=== PATIENT | female | born 2000 | race Caucasian/White ===

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

== ENCOUNTER → 2022-01-30 | Outpatient (CLI) | payer OTHER ==
[2022-02-01 08:11] LABS: CHLAMYDIA TRACHOMATIS, NAA Positive (Negative)
== END | disposition home or self-care (01) ==
LOC: LAB 15:39 → LAB SHORT 15:39
PROVIDERS: Family Medicine
DX: Z20.9 Contact with and (suspected) exposure to unspecified communicable disease (principal)
CPT/HCPCS: 87491; 87591

== ENCOUNTER 2022-11-14 16:43 | Emergency (ER) | payer OTHER ==
[~2022-11-14] VITALS: Ht 157.5 cm; Wt 56.7 kg
[2022-11-14 19:42] VITALS: BP 98/67
== END 2022-11-14 21:00 | disposition home or self-care (01) ==
LOC: ER 16:43
DX: O9A.212 Injury, poisoning and certain other consequences of external causes complicating pregnancy, second trimester (principal); S39.91XA Unspecified injury of abdomen, initial encounter; Z88.8 Allergy status to other drugs, medicaments and biological substances; Z3A.16 16 weeks gestation of pregnancy; Y04.2XXA Assault by strike against or bumped into by another person, initial encounter
CPT/HCPCS: 76815; 99284-25

== ENCOUNTER 2023-04-22 19:23 | Inpatient (IN) | payer OTHER ==
[~2023-04-22] VITALS: Ht 162.6 cm; Wt 72.7 kg
[2023-04-22] VITALS (10 sets, daily range): BP systolic 98–118; BP diastolic 55–71
[2023-04-22 19:58] LABS: BASOPHILS ABSOLUTE AUTO 0.01 K/mm3 (0.00-0.23); BASOPHILS PERCENT AUTO 0 % (0-2); EOSINOPHILS ABSOLUTE AUTO 0.07 K/mm3 (0.00-0.68); EOSINOPHILS PERCENT AUTO 1 % (0-6); Hematocrit 36.6 % (33.0-51.0); Hemoglobin 11.3 g/dL (11.5-16.0); IMMATURE GRAN ABSOLUTE AUTO 0.05 K/mm3 (0.00-0.10); IMMATURE GRAN PERCENT AUTO 0 % (0-1); LYMPHOCYTES ABSOLUTE AUTO 2.24 K/mm3 (0.84-5.20); LYMPHOCYTES PERCENT AUTO 20 % (21-46); MONOCYTES ABSOLUTE AUTO 0.85 K/mm3 (0.16-1.47); MONOCYTES PERCENT AUTO 8 % (4-13); Mean Corpuscular HGB 24.7 pg (26.0-34.0); Mean Corpuscular HGB Conc 30.9 g/dL (31.5-36.5); Mean Corpuscular Volume 80 fL (80-100); Mean Platelet Volume 10.1 fL (9.1-12.4); NEUTROPHILS ABSOLUTE AUTO 8.09 K/mm3 (1.96-9.15); NEUTROPHILS PERCENT AUTO 72 % (41-73); Platelet Count 340 K/mm3 (150-400); RDW Coefficient Variation 26.3 % (11.7-14.2); RDW Standard Deviation 71.8 fL (35.1-46.3); Red Blood Cell Count 4.57 M/mm3 (3.80-5.20); White Blood Cell Count 11.31 K/mm3 (4.00-11.30)
[2023-04-22] MEDS ORDERED: IRON18 MG PO (20:00)
[2023-04-22] MEDS ORDERED: PRENATAL TABLE1 EAC2 PO (20:00)
[2023-04-22] MEDS ORDERED: OMEP20ER (20:01)
[2023-04-23] VITALS (22 sets, daily range): BP systolic 85–105; BP diastolic 52–64
--- NOTE | 2023-04-23 23:51 | NUR ---
PT REPORTS HAVING SEVERE PAIN IN HER BACK WHERE THE EPIDURAL WAS DONE. SHE SAID SHE HAS A HARD TIME GETTING UP BECAUSE OF IT AND IT HURTS TO MOVE. SHE ALSO REPORTS THAT SHE HAS SHOOTING PAIN FROM THE SITE OF THE EPIDURAL TO THE BASE OF HER NECK WHEN SHE MOVES AROUND IN BED. SHE WAS GIVEN PAIN MEDICATION AND A HEATING PAD. IT WAS RECOMMENDED THAT SHE GET UP AND MOVE AROUND MORE. LOOKED AT HER BACK AND THERE IS NO BRUISING OR LUMPS IN HER BACK. SPOKE WITH DR. OLIVER (ANESTHESIA), WHO ALSO RECOMMENDED HEAT AND MOVING MORE. HE SAID IT COULD BE THAT THE NEEDLE FROM THE EPIDURAL TOUCHED A BONE AND THAT IS CAUSING THE PAIN. PT WAS NOTIFIED.
[2023-04-24 07:57] VITALS: BP 96/52
[2023-04-24 09:59] LABS: Mean Corpuscular HGB 24.8 pg (26.0-34.0); Mean Corpuscular Volume 83 fL (80-100); Mean Platelet Volume 10.2 fL (9.1-12.4); Platelet Count 198 K/mm3 (150-400); RDW Coefficient Variation 26.3 % (11.7-14.2); RDW Standard Deviation 73.8 fL (35.1-46.3); Red Blood Cell Count 3.63 M/mm3 (3.80-5.20); White Blood Cell Count 6.64 K/mm3 (4.00-11.30)
--- NOTE | 2023-04-24 10:22 | NUR ---
pt read her and babys dc instruction she reported, didnt want alot of dc instructions, rn able to go over a few things, pt is tearful for going home with out corner bead operator. pt is doing baby care well and independently, SO at bedside, pt to call rn when ready to match bands for going home
[2023-04-24 11:31] VITALS: BP 107/52
--- NOTE | 2023-04-24 15:46 | NUR ---
UPDATED PER EMR - GE
== END 2023-04-24 11:40 | disposition home or self-care (01) | DRG 807 ==
LOC: OBS 19:23 → BC 19:24 → OBS 19:30 → BC 19:31
PROVIDERS: ADMIT Advanced Practice Midwife
PROC: 10E0XZZ Delivery of Products of Conception, External Approach (ICD-10-PCS; principal; 2023-04-23)
PROC: 0HQ9XZZ Repair Perineum Skin, External Approach (ICD-10-PCS; 2023-04-23)
PROC: 3E033VJ Introduction of Other Hormone into Peripheral Vein, Percutaneous Approach (ICD-10-PCS; 2023-04-23)
DX: O99.02 Anemia complicating childbirth (principal); Z37.0 Single live birth; D50.9 Iron deficiency anemia, unspecified; Z3A.39 39 weeks gestation of pregnancy; Z88.8 Allergy status to other drugs, medicaments and biological substances; Z67.40 Type O blood, Rh positive; O70.0 First degree perineal laceration during delivery
CPT/HCPCS: 36415; 51702; 85025; 85027; 86850; 86900; 86901; A9270; J1885; J2590; J3010; J7120

== ENCOUNTER 2023-05-23 02:28 | Emergency (ER) | payer OTHER ==
[~2023-05-23] VITALS: Ht 162.6 cm; Wt 59.0 kg
[~2023-05-23 02:28] MED LIST changes: +IRON18 MG PO; +OMEP20ER; +PRENATAL TABLE1 EAC2 PO
[2023-05-23 03:02] VITALS: BP 98/62
[2023-05-23 04:00] LABS: BASOPHILS ABSOLUTE AUTO 0.03 K/mm3 (0.00-0.23); BASOPHILS PERCENT AUTO 0 % (0-2); EOSINOPHILS ABSOLUTE AUTO 0.41 K/mm3 (0.00-0.68); EOSINOPHILS PERCENT AUTO 5 % (0-6); Hematocrit 36.6 % (33.0-51.0); Hemoglobin 11.1 g/dL (11.5-16.0); IMMATURE GRAN ABSOLUTE AUTO 0.02 K/mm3 (0.00-0.10); IMMATURE GRAN PERCENT AUTO 0 % (0-1); LYMPHOCYTES PERCENT AUTO 32 % (21-46); MONOCYTES ABSOLUTE AUTO 0.79 K/mm3 (0.16-1.47); MONOCYTES PERCENT AUTO 10 % (4-13); Mean Corpuscular HGB 25.2 pg (26.0-34.0); Mean Corpuscular HGB Conc 30.3 g/dL (31.5-36.5); Mean Corpuscular Volume 83 fL (80-100); Mean Platelet Volume 9.5 fL (9.1-12.4); NEUTROPHILS ABSOLUTE AUTO 3.98 K/mm3 (1.96-9.15); NEUTROPHILS PERCENT AUTO 52 % (41-73); Platelet Count 379 K/mm3 (150-400); RDW Coefficient Variation 21.2 % (11.7-14.2); RDW Standard Deviation 63.7 fL (35.1-46.3); White Blood Cell Count 7.63 K/mm3 (4.00-11.30)
[2023-05-23 04:27] LABS: Albumin/Globulin Ratio 0.7 (0.8-1.8); Bilirubin, Total 0.1 mg/dL (0.1-1.0); Bun/Creatinine Ratio 15.9 (12.0-20.0); Calcium, Blood 8.3 mg/dL (8.5-10.1); Creatinine, Blood 0.76 mg/dL (0.40-1.00); Globulin, Blood 4.3 g/dL (2.2-4.0); Magnesium, Blood 2.1 mg/dL (1.6-2.4); Phosphorus, Blood 3.5 mg/dL (2.5-4.9); Potassium, Blood 3.7 mmol/L (3.5-5.5); Total Protein, Blood 7.3 g/dL (6.4-8.2)
[2023-05-23] MEDS ORDERED: HYDCOR2.5C PR (04:58)
[2023-05-23] MEDS ORDERED: DOCU100 PO (04:58)
[2023-05-23] MEDS ORDERED: ACET500 PO (04:58)
[2023-05-23 05:19] LABS: Source, Urine Clean Catch
[2023-05-23 05:27] LABS: Bilirubin, Urine Neg (Neg); Blood, Urine Neg (Neg); Color, Urine Yellow (P-Yellow); Glucose Qualitative, Urine 1+ (Neg); Ketones, Urine 1+ (Neg); Leukocyte Esterase, Urine 2+ (Neg); Nitrite, Urine Neg (Neg); Protein, Urine 2+ (Neg); Specific Gravity, Urine 1.025 (1.003-1.022); Urobilinogen, Urine 1+ (Normal)
[2023-05-23 05:35] LABS: Appearance, Urine Hazy (Clear)
[2023-05-23 05:37] LABS: Bacteria Mod /hpf; Mucus Light (0-Heavy); Red Blood Cells, Urine 0-2 /hpf (0-2); Squamous Epithelial Cells Mod /hpf (Few)
[2023-05-23] MEDS ORDERED: CEPH500 PO (05:41)
== END 2023-05-23 05:57 | disposition home or self-care (01) ==
LOC: ER 02:28
PROVIDERS: Emergency Medicine
DX: O99.63 Diseases of the digestive system complicating the puerperium (principal); K59.00 Constipation, unspecified; O99.285 Endocrine, nutritional and metabolic diseases complicating the puerperium; E86.0 Dehydration; O86.20 Urinary tract infection following delivery, unspecified
CPT/HCPCS: 80053; 81001; 83735; 84100; 85025; 87086; 96361; 96374; 99283-25; A9270; J1885; J7030

== ENCOUNTER 2023-07-18 21:04 | Observation (INO) | payer OTHER ==
[~2023-07-18] VITALS: Ht 162.6 cm; Wt 59.0 kg
[~2023-07-18 21:04] MED LIST changes: +ACET500 PO; +CEPH500 PO; +DOCU100 PO; +HYDCOR2.5C PR
[2023-07-18 21:46] LABS: BASOPHILS ABSOLUTE AUTO 0.04 K/mm3 (0.00-0.23); BASOPHILS PERCENT AUTO 0 % (0-2); EOSINOPHILS ABSOLUTE AUTO 0.65 K/mm3 (0.00-0.68); EOSINOPHILS PERCENT AUTO 6 % (0-6); Hematocrit 35.4 % (33.0-51.0); IMMATURE GRAN ABSOLUTE AUTO 0.03 K/mm3 (0.00-0.10); IMMATURE GRAN PERCENT AUTO 0 % (0-1); LYMPHOCYTES ABSOLUTE AUTO 2.53 K/mm3 (0.84-5.20); LYMPHOCYTES PERCENT AUTO 25 % (21-46); MONOCYTES ABSOLUTE AUTO 0.97 K/mm3 (0.16-1.47); MONOCYTES PERCENT AUTO 10 % (4-13); Mean Corpuscular HGB 26.3 pg (26.0-34.0); Mean Corpuscular HGB Conc 31.1 g/dL (31.5-36.5); Mean Corpuscular Volume 85 fL (80-100); Mean Platelet Volume 8.9 fL (9.1-12.4); NEUTROPHILS ABSOLUTE AUTO 5.95 K/mm3 (1.96-9.15); NEUTROPHILS PERCENT AUTO 59 % (41-73); Platelet Count 434 K/mm3 (150-400); RDW Coefficient Variation 14.3 % (11.7-14.2); RDW Standard Deviation 42.9 fL (35.1-46.3); Red Blood Cell Count 4.19 M/mm3 (3.80-5.20); White Blood Cell Count 10.17 K/mm3 (4.00-11.30)
[2023-07-18 22:04] LABS: Albumin, Blood 2.7 g/dL (3.4-5.0); Albumin/Globulin Ratio 0.6 (0.8-1.8); Bilirubin, Total 0.2 mg/dL (0.1-1.0); Calcium, Blood 8.6 mg/dL (8.5-10.1); Creatinine, Blood 0.56 mg/dL (0.40-1.00); Globulin, Blood 4.8 g/dL (2.2-4.0); Potassium, Blood 3.4 mmol/L (3.5-5.5); Total Protein, Blood 7.5 g/dL (6.4-8.2)
[2023-07-18 22:49] LABS: Source, Urine Clean Catch
[2023-07-18 22:56] LABS: Bilirubin, Urine Neg (Neg); Blood, Urine Neg (Neg); Glucose Qualitative, Urine 3+ (Neg); Ketones, Urine Neg (Neg); Leukocyte Esterase, Urine 2+ (Neg); Nitrite, Urine Neg (Neg); Protein, Urine Neg (Neg); Urobilinogen, Urine 1+ (Normal); pH, Urine 6.5 (5.0-8.0)
[2023-07-18 23:03] LABS: Appearance, Urine Hazy (Clear); Color, Urine Yellow (P-Yellow)
[2023-07-18 23:05] LABS: Bacteria Mod /hpf; Red Blood Cells, Urine 0-2 /hpf (0-2); Squamous Epithelial Cells Few /hpf (Few)
[2023-07-19 08:35] VITALS: BP 110/69
[2023-07-19 12:14] VITALS: BP 110/63
[2023-07-19 14:27] VITALS: BP 100/59
--- NOTE | 2023-07-19 14:27 | NUR ---
ADMISSION: REPORT RECEIVED FROM ED RN. PT TO UNIT AT ABOUT 0835. PT IS A/O, VSS. PT DENIES PAIN OR NAUSEA AT THIS TIME. IV FLUIDS AND ANTIBIOTICS STARTED. PT GIVEN BREAST PUMP FROM FAMILY FOR PUMPING. ORIENTED TO ROOM AND CALL LIGHT. FAMILY AT BEDSIDE
[2023-07-19] MEDS ORDERED: AMOCLA875 PO (16:09)
--- NOTE | 2023-07-19 16:37 | NUR ---
DR. KENNY IN ROOM AT ABOUT 1530. PLAN TO DC ON ANTIBOITICS AND FOLLOW UP FOR POSSIBLE SCOPE WITH BIOPSY WITH DR. KENNY. DR. OJEDA MADE AWARE
--- NOTE | 2023-07-19 16:38 | NUR ---
DISCHARGE: PT HAS NOT COMPLAINED OF ANY N/V OR PAIN. DC PACKET PRINTED AND PT EDUCATED. PT GIVEN SCRIPT FOR LAB DRAW AND INSTRUCTED TO GO TO OUTPT LAB ON SATURDAY. MEDS FAXED TO [facility]. PT LEFT UNIT ON FOOT WITH FAMILY AT THIS TIME.
== END 2023-07-19 16:40 | disposition home or self-care (01) ==
LOC: ER 21:04 → SURS 21:05
PROVIDERS: Student in an Organized Health Care Education/Training Program; ADMIT Internal Medicine
DX: K37 Unspecified appendicitis (principal); E86.0 Dehydration; Z79.899 Other long term (current) drug therapy; Z88.8 Allergy status to other drugs, medicaments and biological substances
CPT/HCPCS: 74177; 76770; 76856; 80053; 81001; 81025; 83605; 83690; 85025; 87086; 96365; 96375; 99285-25; G0378; J0696; J1885; J3480; J7030; J7040; J7120; Q9967